=== PATIENT | female | born 1960 | race Caucasian/White ===

== ENCOUNTER 2016-07-11 08:13 | Day surgery (SDC) | payer BC ==
[2016-07-10 16:30] LABS: HEMOGLOBIN 12.9 g/dL (12.0-16.0)
[2016-07-10 16:31] LABS: HEMATOCRIT 38.2 % (36.0-48.0)
[2016-07-10 17:57] LABS: A/G RATIO 1.3 (0.7-1.9); ALBUMIN 4.2 G/DL (3.5-5.0); ALKALINE PHOSPHATASE 74 U/L (45-117); BUN (BLOOD UREA NITROGEN) 17 MG/DL (6-23); CALCIUM, SERUM 9.4 MG/DL (8.5-10.4); CHLORIDE, SERUM 105 MMOL/L (96-112); CREATININE 0.77 MG/DL (0.55-1.02); GFR AFRICAN AMERICAN 102 ML/MIN (>=60); GFR NON AFRICAN AMERICAN 88 ML/MIN (>=60); GLOBULIN 3.2 G/DL (2.5-4.1); GLUCOSE, SERUM 91 MG/DL (60-99); POTASSIUM, SERUM 4.4 MMOL/L (3.5-5.3); SGOT(AST) 29 U/L (5-40); SGPT(ALT) 43 U/L (5-65); SODIUM, SERUM 143 MMOL/L (135-148); TOTAL BILIRUBIN 0.2 MG/DL (0-1.2); TOTAL PROTEIN 7.4 G/DL (6.0-8.5)
[2016-07-10 17:58] LABS: CO2 (CARBON DIOXIDE) 31 MMOL/L (24-34)
--- NOTE | ~2016-07-11 | OP ---
Record Of Operation [facility] [address] [place]. [address] NAME: PAIGE FENG : 64 STATUS : REG [facility]#: [id number] AGE: 55 ADM/REG DATE : 07/11/16 MR#: [id number] REPORT SERV DATE: 07/11/16 DICTATED BY: COLUMBA REYES DATE: 07/11/16 REPORT STATUS : Draft TRANSCRIBED BY: MODStephan DATE: 07/11/16 DATE OF PROCEDURE: PREOPERATIVE DIAGNOSIS: Left breast HER2-positive breast cancer. POSTOPERATIVE DIAGNOSIS: Left breast HER2-positive breast cancer. PROCEDURES: 1. Placement of a right chest wall venous port internal jugular access. 2. Intraoperative fluoroscopy with interpretation. 3. Intraoperative ultrasound for vein access. INDICATION FOR THE PROCEDURE: Mrs. Feng is a relatively healthy 55-year-old female, who has a history of right breast cancer, HER2 positive, treated in 2005 with neoadjuvant chemotherapy and adjuvant chemotherapy as well as segmentectomy and radiation. Unfortunately, the patient has a new HER2-positive breast cancer on the left side at the 6 o'clock position. She has met with Dr. Farris and is planning on starting chemotherapy neoadjuvantly on Saturday. The patient is here for port placement. OPERATIVE FINDINGS: After appropriate consent was on the chart, the patient was taken to the operating room in supine position. She was placed under monitored anesthesia without complication. Ultrasound was placed in the right neck and the visualization of the right internal jugular vein was noted. It was patent and in the normal anatomic position. The patient's bilateral chest wall and neck were prepped and draped in sterile fashion. The draped ultrasound probe was again utilized to visualize the right internal jugular vein. Local anesthetic was instilled in the soft tissue overlying the vein and the vein accessed with a single stick of the Seldinger needle under direct ultrasound guidance. Nonpulsatile venous appearing blood was noted in the syringe and the wire passed with ease. The wire was noted to be in good position with intraoperative fluoroscopy. The needle was removed and the wire was secured to the drapes. The local anesthetic was then utilized to anesthetize the port pocket. The port pocket was opened with a #15 blade and sharp dissection carried down with Bovie cauterization to create the port pocket. Stay sutures were placed at the 3 o'clock and 9 o'clock positions of Prolene. These were secured for later use. A #11 blade was utilized to lengthen the vein access site in the neck. Tunneling device was then utilized to create a subcutaneous tunnel from the port site to the neck site in the neck. The catheter was pulled through without issue. The dilator with tear-away sheath were passed over the wire and with constant movement of the wire, the vein was dilated. The wire and dilator were removed, and the catheter placed through the tear-away sheath and the sheath torn away. The catheter was noted to be in good position in the vena cava. It was pulled back to the atriocaval junction and cut for length. It was attached to the port with the attachment device. The port was noted to flush easily, but aspiration was difficult. The catheter was pulled back in multiple different lengths and still no aspirate noted. The patient could of course have a clot or could have some sort of fibrosis of the vein. It is interesting that the port placement of at this point had gone extremely smoothly and the port was flushed with ease. I decided to try a different port device as I was concerned of Record Of Operation [place] [id number] [facility] [place]. [address] NAME: PAIGE FENG : 64 STATUS : REG [facility] [place] PAT#: [id number] AGE: 55 ADM/REG DATE : 07/11/16 MR#: [id number] REPORT SERV DATE: 07/11/16 DICTATED BY: COLUMBA REYES DATE: 07/11/16 REPORT STATUS : Draft TRANSCRIBED BY: MODL DATE: 07/11/16 malfunctioning with the catheter or the port. A whole new catheter and port were placed in a very similar fashion through the same access of the vein. This was utilized using a wire passed through the catheter to keep access in the vein. The vein did bleed well when the catheter was removed noting that the dilated vein was still patent. Again the new port was noted to flush easily but did not aspirate. At this point, it was decided to leave the port in place as it was functioning in a fashion that the could be utilized for chemotherapy. Unfortunately, the patient will likely not be able to have her labs drawn from this catheter. It is a possibility to get Interventional Radiology to access the port with IV dye and see if there any clots or valves issue. The port was secured into place and the skin closed in two layers of Monocryl. The skin was cleansed and dried and a dressing applied. The patient tolerated the procedure well. She was awoken from anesthesia without complication and taken to the PACU in stable condition for recovery. All counts were correct at the end of the case. ESTIMATED BLOOD LOSS: 30 mL. COMPLICATIONS: Inability to get the port to aspirate easily. MANAV/MODL Columba Reyes MD / [id number] CC: MD Maximiliano Castro Steven [facility] Dru Farris M.D.
[~2016-07-11 08:13] MED LIST: COZ25 PO; FOSAMAX70 MG PO; MACROBID PO; MAX25 PO; NOLV10 PO
[2016-07-13] MEDS ORDERED: DEX4 PO (19:54)
[2016-07-13] MEDS ORDERED: COMP10B PO (19:54)
[2016-07-13] MEDS ORDERED: COZ25 PO (19:55)
[2016-07-13] MEDS ORDERED: CHEMO (19:55)
[2016-07-13] MEDS ORDERED: BEN25 PO (19:56)
[2016-07-13] MEDS ORDERED: TYLENOL PM PO (19:56)
[2016-07-13] MEDS ORDERED: PROVHFA INH (19:56)
[2016-07-13] MEDS ORDERED: MACROBID PO (19:57)
[2016-07-24] MEDS ORDERED: ARIMIDEX1 PO (14:28)
== END 2016-07-11 23:59 | disposition home or self-care (01) ==
LOC: SDC 08:13
PROVIDERS: Surgery Surgical Oncology
PROC: B513ZZA Fluoroscopy of Right Jugular Veins, Guidance (ICD-10-PCS; 2016-07-11)
PROC: 05HM33Z Insertion of Infusion Device into Right Internal Jugular Vein, Percutaneous Approach (ICD-10-PCS; principal; 2016-07-11 10:15)
DX: C50.812 Malignant neoplasm of overlapping sites of left female breast (principal); Z17.0 Estrogen receptor positive status [ER+]; M50.30 Other cervical disc degeneration, unspecified cervical region; I10 Essential (primary) hypertension; M54.2 Cervicalgia; G89.29 Other chronic pain; J45.909 Unspecified asthma, uncomplicated; Z85.3 Personal history of malignant neoplasm of breast; Z79.899 Other long term (current) drug therapy; C50.312 Malignant neoplasm of lower-inner quadrant of left female breast
CPT/HCPCS: 71010; 71020; 76000; 77001; 78815; 80053; 85014; 85018; 93005; A9270-GY; A9552; C1751; J0690; J2250; J3010

== ENCOUNTER 2016-07-14 12:14 | Inpatient (IN) | payer OTHER, BC ==
--- NOTE | ~2016-07-14 | OP ---
Record Of Operation [facility] [address] [place]. [address] NAME: PAIGE SOTO : 64 STATUS : ADM IN PAT#: [id number] AGE: 55 ADM/REG DATE : 07/14/16 MR#: [id number] REPORT SERV DATE: 07/14/16 DICTATED BY: JUSTINO GARCIA JR. DATE: 07/14/16 REPORT STATUS : Draft TRANSCRIBED BY: MODStephan DATE: 07/14/16 DATE OF PROCEDURE: 07/14/2016 PREOPERATIVE DIAGNOSES: Breast cancer, status post recent placement of Port-A-Cath with infusion of chemotherapy, acute right pleural effusion with likely installation chemotherapy in the pleural space. POSTOPERATIVE DIAGNOSES: Breast cancer, status post recent placement of Port-A-Cath with infusion of chemotherapy, acute right pleural effusion with likely installation chemotherapy in the pleural space, malposition of Port-A-Cath. NAME OF OPERATION: Removal of Port-A-Cath, right thoracoscopy with irrigation of pleural space, partial decortication, intercostal nerve block. SURGEON: Justino Garcia M.D. QUARTER SECTION IRONER: Bárbara Villagran. ANESTHESIA: General endotracheal. FINDINGS: The patient had a Port-A-Cath that was exiting the subclavian vein posteriorly and running right along the superior vena cava. There was a small amount of blood and debris on the lung surface that required decortication. There was mild inflammation of the pleural lining, but no significant necrosis or tissue damage. The lung looked healthy. We irrigated the chest cavity with 6 L of normal saline solution. There was minimal bleeding when we pulled the Port-A-Cath from the back of the subclavian vein. This was easily controlled. The Port-A-Cath was sent to path for identification only. DETAILS OF OPERATION: After adequate anesthesia, the patient was intubated with a single- lumen endotracheal tube. Her chest was prepped and draped in routine sterile fashion. The previous Port-A-Cath incision was opened up where the Port-A-Cath sutures were removed and the device extracted. The lead was easily removable. The sheath was intact and the catheter was intact. The space was thoroughly irrigated. Interrupted 3-0 Vicryl sutures were placed to help close the subcutaneous tissue. The skin was closed with running monofilament suture. A Dermabond dressing was applied. The procedure was terminated this point. Next, the patient was then repositioned in the left lateral decubitus position, and the right chest prepped and draped in routine sterile fashion. A small incision was made overlying the lower intercostal space. Through a single incision, the chest was explored. It was noted there was some blood along the chest wall as well as some material covering the lung tissue. There was a small amount of residual fluid within the chest cavity. This was evacuated. The lung was partially decorticated such that it would fully re-expand. The pleura had some mild inflammation, but there was no significant tissue damage or necrosis seen. The lung looked healthy. The chest was then thoroughly irrigated with 6 L normal saline solution. A 28-Montenegrin chest tube was placed. An intercostal block was performed. The single trocar site was closed with running Vicryl sutures. The skin was closed with running monofilament suture. A Dermabond dressing was applied. The procedure was Record Of Operation [address] [address] NAME: PAIGE SOTO : 64 STATUS : ADM IN [facility]#: [id number] AGE: 55 ADM/REG DATE : 07/14/16 MR#: [id number] REPORT SERV DATE: 07/14/16 DICTATED BY: JUSTINO GARCIA JR. DATE: 07/14/16 REPORT STATUS : Draft TRANSCRIBED BY: ABDULKADIR DATE: 07/14/16 terminated at this point. The patient tolerated the procedure well and taken back to recovery room in stable condition. KIESHA/ABDULKADIR Justino Garcia Jr., M.D. / [id number] CC: Justino Garcia Jr., M.D.
[~2016-07-14 12:14] MED LIST changes: +BEN25 PO; +CHEMO; +COMP10B PO; +DEX4 PO; +PROVHFA INH; +TYLENOL PM PO
[2016-07-15 03:36] LABS: BASOPHILS 0 %; EOSINOPHILS 0 %; HEMATOCRIT 35.3 % (36.0-48.0); HEMOGLOBIN 11.9 g/dL (12.0-16.0); IMMATURE GRANULOCYTES 0.3 %; IMMATURE GRANULOCYTES ABSOLUTE 0.05 10/3/uL (0.0-0.11); LYMPHOCYTES 7.2 %; MEAN CORPUS HGB CONC 33.7 g/dL (32.0-36.0); MEAN CORPUSCULAR HEMOGLOB 29.8 pg (26.0-34.0); MEAN CORPUSCULAR VOLUME 88.3 fL (80-100); MEAN PLATELET VOLUME 10.2 fL (9.2-13.0); MONOCYTES 5.8 %; MONOCYTES ABSOLUTE 0.97 10/3/uL (0.21-1.20); NEUTROPHILS 86.7 %; NEUTROPHILS ABSOLUTE 14.41 10/3/uL (2.02-8.40); RBC DISTRIBUTION WIDTH 12.6 % (12.0-16.0); WHITE BLOOD CELLS 16.6 10/3/uL (4.5-10.5)
[2016-07-15 03:42] LABS: MANUAL DIFF NO %; PLATELET COUNT 317 10/3/uL (150-400)
[2016-07-15 03:48] LABS: CALCIUM, SERUM 8.3 MG/DL (8.5-10.4); CHLORIDE, SERUM 108 MMOL/L (96-112); CO2 (CARBON DIOXIDE) 25 MMOL/L (24-34); CREATININE 0.77 MG/DL (0.55-1.02); GFR AFRICAN AMERICAN 102 ML/MIN (>=60); GFR NON AFRICAN AMERICAN 88 ML/MIN (>=60); GLUCOSE, SERUM 134 MG/DL (60-99); POTASSIUM, SERUM 3.8 MMOL/L (3.5-5.3); SODIUM, SERUM 138 MMOL/L (135-148)
[2016-07-15 03:49] LABS: BUN (BLOOD UREA NITROGEN) 15 MG/DL (6-23)
[2016-07-16 04:59] LABS: BASOPHILS 0.1 %; BASOPHILS ABSOLUTE 0.01 10/3/uL (0.0-0.16); EOSINOPHILS 0 %; HEMATOCRIT 34.9 % (36.0-48.0); HEMOGLOBIN 11.8 g/dL (12.0-16.0); IMMATURE GRANULOCYTES 0.5 %; IMMATURE GRANULOCYTES ABSOLUTE 0.07 10/3/uL (0.0-0.11); LYMPHOCYTES 11.3 %; LYMPHOCYTES ABSOLUTE 1.51 10/3/uL (0.67-4.30); MANUAL DIFF NO %; MEAN CORPUS HGB CONC 33.8 g/dL (32.0-36.0); MEAN CORPUSCULAR HEMOGLOB 29.6 pg (26.0-34.0); MEAN CORPUSCULAR VOLUME 87.5 fL (80-100); MEAN PLATELET VOLUME 10.1 fL (9.2-13.0); MONOCYTES ABSOLUTE 0.67 10/3/uL (0.21-1.20); NEUTROPHILS 83.1 %; NEUTROPHILS ABSOLUTE 11.14 10/3/uL (2.02-8.40); PLATELET COUNT 324 10/3/uL (150-400); RBC DISTRIBUTION WIDTH 12.8 % (12.0-16.0); RED CELL COUNT 3.99 10/6/uL (4.0-5.6); WHITE BLOOD CELLS 13.4 10/3/uL (4.5-10.5)
[2016-07-16 05:02] LABS: CALCIUM, SERUM 8.5 MG/DL (8.5-10.4); CHLORIDE, SERUM 105 MMOL/L (96-112); CO2 (CARBON DIOXIDE) 29 MMOL/L (24-34); CREATININE 0.65 MG/DL (0.55-1.02); GFR AFRICAN AMERICAN 117 ML/MIN (>=60); GFR NON AFRICAN AMERICAN 101 ML/MIN (>=60); GLUCOSE, SERUM 129 MG/DL (60-99); POTASSIUM, SERUM 4.3 MMOL/L (3.5-5.3); SODIUM, SERUM 139 MMOL/L (135-148)
[2016-07-16 05:03] LABS: BUN (BLOOD UREA NITROGEN) 19 MG/DL (6-23)
[2016-07-16] MEDS ORDERED: PCET PO (08:19)
[2016-07-24] MEDS ORDERED: ARIMIDEX1 PO (14:28)
== END 2016-07-16 10:44 | disposition home or self-care (01) | DRG 982 ==
LOC: 5NO 12:14
PROVIDERS: Thoracic Surgery (Cardiothoracic Vascular Surgery)
PROC: 0BDN4ZZ Extraction of Right Pleura, Percutaneous Endoscopic Approach (ICD-10-PCS; 2016-07-14)
PROC: 3E0T3BZ Introduction of Anesthetic Agent into Peripheral Nerves and Plexi, Percutaneous Approach (ICD-10-PCS; 2016-07-14)
PROC: 0JPT0XZ Removal of Tunneled Vascular Access Device from Trunk Subcutaneous Tissue and Fascia, Open Approach (ICD-10-PCS; principal; 2016-07-14 11:45)
PROC: 05PY03Z Removal of Infusion Device from Upper Vein, Open Approach (ICD-10-PCS; 2016-07-14 11:45)
DX: C50.312 Malignant neoplasm of lower-inner quadrant of left female breast (principal); T82.524A Displacement of infusion catheter, initial encounter; J90 Pleural effusion, not elsewhere classified; T82.534A Leakage of infusion catheter, initial encounter; I10 Essential (primary) hypertension; Z86.73 Personal history of transient ischemic attack (TIA), and cerebral infarction without residual deficits; Z17.0 Estrogen receptor positive status [ER+]; M50.30 Other cervical disc degeneration, unspecified cervical region; G89.29 Other chronic pain
CPT/HCPCS: 71020; 80048; 82962; 85025; 88300; 94640; A9270-GY; J0690; J1885; J2250; J2370; J2405; J2710; J2795; J3010

== ENCOUNTER 2016-07-27 06:52 | Day surgery (SDC) | payer OTHER, BC ==
--- NOTE | ~2016-07-27 | OP ---
Record Of Operation [facility] [address] [place]. [address] NAME: PAIGE SOTO : 64 STATUS : REG [facility] [place] PAT#: [id number] AGE: 55 ADM/REG DATE : 07/27/16 MR#: [id number] REPORT SERV DATE: 07/27/16 DICTATED BY: COLUMBA REYES DATE: 07/27/16 REPORT STATUS : Draft TRANSCRIBED BY: MODL DATE: 07/27/16 DATE OF PROCEDURE: 07/27/2016 PREOPERATIVE DIAGNOSES: 1. Left breast cancer. 2. Malpositioned right chest wall port with prior removal. POSTOPERATIVE DIAGNOSES: 1. Left breast cancer. 2. Malpositioned right chest wall port with prior removal. PROCEDURES: 1. Placement of a right chest wall venous port, internal jugular access. 2. Intraoperative ultrasound for venous access. 3. Intraoperative fluoroscopy with interpretation. INDICATION FOR THE PROCEDURE: The patient is a healthy 55-year-old female, who has had a history of right breast cancer treated with breast preservation radiation, neoadjuvant chemotherapy, and tamoxifen. She now presented with a left breast cancer which is unfortunately also triple-positive. The patient needs neoadjuvant chemotherapy. On 07/11/2016, the patient presented for a port placement. Unfortunately, there was malpositioning of the catheter. Chemotherapy was instilled to this catheter, and the patient required a washout with thoracic surgery. She has now recovered from that surgery quite well, and is ready for placement of a port. OPERATIVE FINDINGS: After appropriate consent was noted on the chart, the patient was taken to the operating room in supine position. She was placed under monitored anesthesia without complication. The ultrasound was placed to the right neck. The right internal jugular vein was noted in its normal anatomic position and patent. The bilateral chest wall and neck were prepped and draped in the sterile fashion. The draped ultrasound probe was utilized to visualize the right internal jugular vein. The access site was utilized at a slightly different position than the prior access site at approximately 1 cm proximal on the vein. The vein was accessed with a single pass with a Seldinger needle, and nonpulsatile venous appearing blood was noted in the syringe. This access was done under direct ultrasound guidance. The syringe was removed and the wire was passed with ease. Fluoroscopy was utilized to note that the wire appeared to be in good position. There was movement of the wire with the heart beat and also some ectopy. The wire was secured to the drapes for later use. The port pocket was anesthetized, and the inflammation and scar of the prior incision were excised in elliptical fashion. Dissection was carried down to the port pocket which was opened slightly with Bovie cauterization. Two stay sutures were placed of 3-0 Prolene at the 9 o'clock and 3 o'clock positions. The vein access site was lengthened slightly with an 11 blade in the neck, and the middle tunneling device was utilized to create a tunnel between the port site, and the access site in the neck. The catheter was pulled through. At this point, the vein was dilated with constant movement of the wire, and the dilator and sheath passed over the wire. Once the vein had been dilated, the dilator and wire were removed leaving the sheath in the vein. The catheter was passed into the sheath with no Record Of Operation [address] [place]. [address] NAME: PAIGE SOTO : 64 STATUS : REG [facility] [place] PAT#: [id number] AGE: 55 ADM/REG DATE : 07/27/16 MR#: [id number] REPORT SERV DATE: 07/27/16 DICTATED BY: COLUMBA REYES DATE: 07/27/16 REPORT STATUS : Draft TRANSCRIBED BY: ABDULKADIR DATE: 07/27/16 issue. The sheath torn away. The catheter was pulled back to the atriocaval junction using constant fluoroscopy. Again, the catheter was pulsating with the heartbeat. The catheter was connected to the port with the connection device, and the port noted to aspirate easily. Had great blood flow and the port flushed with ease. It was packed with heparinized saline. The port was placed into the port pocket and secured with two sutures. The port pocket was then closed in two layers of Monocryl. The skin was cleansed and dried, and Dermabond was overlaid. A final shot of fluoroscopy was utilized to ensure that the port appeared to be in good position with no kinks or tethering in the line. It appeared to sit in good position in the atriocaval junction. The patient was awoken from anesthesia without complication, and taken to the PACU in stable condition for recovery. During the case, the patient did have some slight hypotension and hypoxia down to approximately 91%. The PIERCER did note that this was likely from sedation, and it did come up nicely once the sedation was turned off. I did see the patient in the PACU immediately after surgery and vital signs were stable, oxygen saturation of 100%. Blood pressure systolic over 130. A chest x-ray will be obtained in recovery to ensure the catheter is in good position and there was no sign of pneumothorax. At the end of the case, all counts were correct. ESTIMATED BLOOD LOSS: 20 mL. COMPLICATIONS: None. SPECIMENS: None. MANAV/MODL Columba Reyes MD / [id number] CC: MD Evelio Castro II, M.D. Michael Stipanov, M.D. [facility]
[~2016-07-27 06:52] MED LIST changes: +ARIMIDEX1 PO; +PCET PO
== END 2016-07-27 12:48 | disposition home or self-care (01) ==
LOC: SDC 06:52
PROVIDERS: Surgery Surgical Oncology
PROC: 05HM33Z Insertion of Infusion Device into Right Internal Jugular Vein, Percutaneous Approach (ICD-10-PCS; principal; 2016-07-27 08:30)
DX: T82.524A Displacement of infusion catheter, initial encounter (principal); C50.912 Malignant neoplasm of unspecified site of left female breast; I10 Essential (primary) hypertension; J45.909 Unspecified asthma, uncomplicated; G89.29 Other chronic pain; M54.2 Cervicalgia; Z85.3 Personal history of malignant neoplasm of breast; Z92.21 Personal history of antineoplastic chemotherapy; Z92.3 Personal history of irradiation; Z98.890 Other specified postprocedural states; Z79.899 Other long term (current) drug therapy
CPT/HCPCS: 71010; 77001; A9270-GY; C1751; J0690; J2250; J2370; J3010